=== PATIENT | male | born 1955 | race African-American/Black ===

== ENCOUNTER 2016-05-27 10:14 | Outpatient (CLI) | payer OTHER ==
[2016-05-27 10:45] LABS: Hemoglobin A1c 6.6 % (4.0-6.0)
[2016-05-27 10:52] LABS: ALT (SGPT) 11 U/L (0-55); AST (SGOT) 13 U/L (5-34); Albumin 4.1 g/dL (3.4-4.8); Alkaline Phosphatase 53 U/L (40-150); Anion Gap 14 mmol/L (10-20); BUN (Urea Nitrogen) 16 mg/dL (8.4-25.7); Bilirubin, Total 0.7 mg/dL (0.2-1.2); Calc. Creatinine Clearance 0 mL/min (70-130); Calcium 9.5 mg/dL (7.8-10.44); Carbon Dioxide 25 mmol/L (23-31); Chloride 101 mmol/L (98-107); Estimated GFR-MDRD 84; Globulin 2.8 g/dL (2.4-3.5); Glucose 104 mg/dL (80-115); Potassium 4.6 mmol/L (3.5-5.1); Protein, Total 6.9 g/dL (5.8-8.1); Sodium 135 mmol/L (136-145)
== END 2016-05-27 10:15 | disposition home or self-care (01) ==
LOC: MADLABBHPM 10:14
PROVIDERS: ATTEND Family Medicine
DX: E79.0 Hyperuricemia without signs of inflammatory arthritis and tophaceous disease (principal); E11.9 Type 2 diabetes mellitus without complications
CPT/HCPCS: 36415; 80053; 83036; 84550

== ENCOUNTER 2016-08-26 10:54 | Outpatient (CLI) | payer OTHER ==
[2016-08-26 11:29] LABS: ALT (SGPT) 13 U/L (8-55); AST (SGOT) 14 U/L (5-34); Alkaline Phosphatase 52 U/L (40-150); Anion Gap 12 mmol/L (10-20); BUN (Urea Nitrogen) 13 mg/dL (8.4-25.7); Bilirubin, Total 0.6 mg/dL (0.2-1.2); Calc. Creatinine Clearance 0 mL/min (70-130); Calcium 8.9 mg/dL (7.8-10.44); Carbon Dioxide 25 mmol/L (23-31); Chloride 103 mmol/L (98-107); Estimated GFR-MDRD 88; Globulin 2.8 g/dL (2.4-3.5); Glucose 98 mg/dL (80-115); Potassium 4.3 mmol/L (3.5-5.1); Protein, Total 6.8 g/dL (5.8-8.1); Sodium 136 mmol/L (136-145)
== END 2016-08-26 10:55 | disposition home or self-care (01) ==
LOC: MADLABBHPM 10:54
PROVIDERS: ATTEND Family Medicine
DX: E11.9 Type 2 diabetes mellitus without complications (principal)
CPT/HCPCS: 36415; 80053

== ENCOUNTER 2016-11-12 08:17 | Outpatient (CLI) | payer OTHER ==
[2016-11-12 08:47] LABS: Hemoglobin A1c 6.6 % (4.0-6.0)
[2016-11-12 09:16] LABS: ALT (SGPT) 15 U/L (8-55); AST (SGOT) 14 U/L (5-34); Albumin 3.9 g/dL (3.4-4.8); Alkaline Phosphatase 55 U/L (40-150); Anion Gap 14 mmol/L (10-20); BUN (Urea Nitrogen) 13 mg/dL (8.4-25.7); Bilirubin, Direct 0.2 mg/dL (0.1-0.3); Bilirubin, Total 0.5 mg/dL (0.2-1.2); Calc. Creatinine Clearance 0 mL/min (70-130); Calcium 9.3 mg/dL (7.8-10.44); Carbon Dioxide 27 mmol/L (23-31); Cardiac Risk 4.8 (Less than 4.5); Chloride 100 mmol/L (98-107); Cholesterol 181 mg/dl (< 200 Desired); Estimated GFR-MDRD 83; Globulin 3.1 g/dL (2.4-3.5); Glucose 146 mg/dL (80-115); HDL Cholesterol 38 mg/dL (>60 Neg Risk); LDL Cholesterol, Calculated 116 mg/dL; Potassium 4.7 mmol/L (3.5-5.1); Sodium 136 mmol/L (136-145); Triglycerides 135 mg/dL (Less than 150); Uric Acid 6.7 mg/dL (3.5-7.2)
[2016-11-12 09:31] LABS: Free T4 (Free Thyroxine) 1.1 ng/dL (0.70-1.48); Thyroid Stimulating Hormone 2.171 uIU/mL (0.35-4.94)
[2016-11-12 09:34] LABS: Hemoglobin 16.5 g/dL (14.0-18.0); Mean Corpuscular HGB CONC 31.4 g/dL (32.0-36.0); Mean Corpuscular Hemoglobin 27.4 pg (27.0-31.0); Mean Corpuscular Volume 87.3 fl (80.0-94.0); Mean Platelet Volume 15.4 fL (7.4-10.4); Platelet Count 107 thou/uL (130-400); RBC Distribution Width 13.5 % (11.5-14.5); White Blood Cell (WBC) Count 4.6 thou/uL (4.8-10.8)
[2016-11-12 10:57] LABS: Band 3 % (5-11); Lymphocytes 27 % (21-51); Manual Diff?? YES; Monocytes 5 % (0-10); Neutrophil 42 % (42-75); Reactive Lymphocytes 22 % (0-10)
[2016-11-12 10:58] LABS: Eosinophils 1 % (0-10)
[2016-11-12 10:59] LABS: Giant Platelets MODERATE; PLT Morphology Comment Appears Decreased; RBC Morphology Normal
[2016-11-12 11:08] LABS: MDiff Complete? YES
[2016-11-12 17:30] LABS: Creatinine, Urine 78.86 mg/dL (63-166); Microalbumin Urine Less than 1.0 mg/dL (0.5-50.0); Microalbumin/Creat Ratio 12.7 mg/g (Less than 30)
== END 2016-11-12 08:18 | disposition home or self-care (01) ==
LOC: MADLABBHPM 08:17
PROVIDERS: ATTEND Family Medicine
DX: E11.9 Type 2 diabetes mellitus without complications (principal); E78.5 Hyperlipidemia, unspecified; B35.1 Tinea unguium
CPT/HCPCS: 36415; 80053; 80061; 82043; 82248; 83036; 84439; 84443; 84550; 85025

== ENCOUNTER 2017-05-06 02:30 | Emergency (ER) | payer OTHER ==
[2017-05-06] MEDS ORDERED: Aspirin 325 MG TAB ONE (03:26)
[2017-05-06] MEDS ORDERED: Nitroglycerin 0.4 MG TAB 1 EACH ONE (03:26)
[2017-05-06] MEDS ORDERED: Donnatal Elixir 16.2 MG/5 ML UDCUP ONE ×2 (03:32→08:54)
[2017-05-06] MEDS ORDERED: Mag-Al Plus 1200 MG/1200 MG/120 MG/30 ML UDCUP ONE (03:33)
[2017-05-06] MEDS ORDERED: Lidocaine Viscous Sol 2% 15 ml UD Cup ONE (03:33)
[2017-05-06 03:41] LABS: INR-International Normal Ratio 1.1; PTT 26.8 SEC (22.9-36.1); Prothrombin Time 13.9 SEC (12.0-14.7)
[2017-05-06 03:47] LABS: Hemoglobin 16.1 g/dL (14.0-18.0); Lymphocytes 39 % (21-51); MDiff Complete? YES; Mean Corpuscular Hemoglobin 28.6 pg (27.0-31.0); Mean Corpuscular Volume 86.8 fl (80.0-94.0); Mean Platelet Volume 11.8 fL (7.4-10.4); Monocytes 6 % (0-10); Neutrophil 48 % (42-75); PLT Morphology Comment Appears Decreased; Platelet Count 126 thou/uL (130-400); RBC Distribution Width 12.6 % (11.5-14.5); RBC Morphology Normal; Reactive Lymphocytes 7 % (0-10); Red Blood Cell (RBC) Count 5.62 mill/uL (4.70-6.10); White Blood Cell (WBC) Count 6.2 thou/uL (4.8-10.8)
[2017-05-06 03:52] LABS: ALT (SGPT) 11 U/L (8-55); AST (SGOT) 11 U/L (5-34); Albumin 3.9 g/dL (3.4-4.8); Alkaline Phosphatase 54 U/L (40-150); Anion Gap 15 mmol/L (10-20); BUN (Urea Nitrogen) 16 mg/dL (8.4-25.7); Bilirubin, Total 0.4 mg/dL (0.2-1.2); CK (CPK) 80 U/L (30-200); Calc. Creatinine Clearance 0 mL/min (70-130); Calcium 9.1 mg/dL (7.8-10.44); Carbon Dioxide 25 mmol/L (23-31); Chloride 101 mmol/L (98-107); Estimated GFR-MDRD Greater than 90; Globulin 2.8 g/dL (2.4-3.5); Glucose 134 mg/dL (80-115); Potassium 4.3 mmol/L (3.5-5.1); Protein, Total 6.7 g/dL (5.8-8.1); Sodium 137 mmol/L (136-145)
[2017-05-06 04:09] LABS: CKMB 1.6 ng/mL (0-6.6); Troponin I 0.016 ng/mL (< 0.028)
--- NOTE | 2017-05-06 08:14 | RAD ---
PORTABLE AP CHEST RADIOGRAPH: Date: 05-06-17 History: Chest pain Comparison: 05-07-12 FINDINGS: Cardiac silhouette and pulmonary vasculature are within normal limits. There is focal eventration of the medial right hemidiaphragm. The lungs are clear. Vascular calcification in the thoracic aorta. Th ere has been no interval change from prior exam. IMPRESSION: No acute cardiopulmonary process. POS: [facility]
== END 2017-05-06 04:30 | disposition home or self-care (01) ==
LOC: MADERS 02:30
DX: R07.89 Other chest pain (principal); M10.9 Gout, unspecified; E11.9 Type 2 diabetes mellitus without complications; I10 Essential (primary) hypertension; J44.9 Chronic obstructive pulmonary disease, unspecified
CPT/HCPCS: 71045; 80053; 82553; 83880; 84484; 85025; 85610; 85730; 93005; 94760

== ENCOUNTER 2018-02-10 08:07 | Emergency (ER) | payer OTHER ==
--- NOTE | 2018-02-10 08:53 | RAD ---
FRONTAL VIEW CHEST: COMPARISON: 05/06/2017. INDICATION: Cough. FINDINGS: There is a patchy left basilar density. Mild prominence of pulmonary vasculature as well as prominen ce of the cardiomediastinal silhouette. Component of left pleural fluid not excluded. No discrete p neumothorax. IMPRESSION: 1. Left basilar density indicating pneumonia. Superimposed pleural fluid is not excluded. 2. Findings are superimposed upon a background of edema. Recommend followup to resolution to include 2 view chest series. CODE T POS: [facility]
[2018-02-10 08:56] LABS: Hemoglobin 15.6 g/dL (14.0-18.0); Mean Corpuscular HGB CONC 31.4 g/dL (32.0-36.0); Mean Corpuscular Hemoglobin 27.1 pg (27.0-31.0); Mean Corpuscular Volume 86.3 fL (78.0-98.0); Mean Platelet Volume 10.4 fL (7.4-10.4); Platelet Count 194 thou/uL (130-400); RBC Distribution Width 12.9 % (11.5-14.5); Red Blood Cell (RBC) Count 5.76 mill/uL (4.70-6.10); White Blood Cell (WBC) Count 14.6 thou/uL (4.8-10.8)
[2018-02-10 09:00] LABS: Band 2 % (5-11); Lymphocytes 15 % (21-51); MDiff Complete? YES; Manual Diff?? YES; Monocytes 5 % (0-10); Neutrophil 78 % (42-75); PLT Morphology Comment Appears Adequate; RBC Morphology Normal
[2018-02-10 09:06] LABS: INR-International Normal Ratio 1.1; PTT 26.9 SEC (22.9-36.1); Prothrombin Time 13.9 SEC (12.0-14.7)
[2018-02-10 09:06] LABS: ALT (SGPT) 26 U/L (8-55); AST (SGOT) 30 U/L (5-34); Albumin 4.2 g/dL (3.4-4.8); Alkaline Phosphatase 87 U/L (40-150); Anion Gap 16 mmol/L (10-20); BUN (Urea Nitrogen) 13 mg/dL (8.4-25.7); Bilirubin, Total 1.1 mg/dL (0.2-1.2); Calc. Creatinine Clearance 0 mL/min (70-130); Calcium 9.5 mg/dL (7.8-10.44); Carbon Dioxide 24 mmol/L (23-31); Chloride 101 mmol/L (98-107); Estimated GFR-MDRD 86; Globulin 3.6 g/dL (2.4-3.5); Glucose 134 mg/dL (80-115); Potassium 4.3 mmol/L (3.5-5.1); Protein, Total 7.8 g/dL (5.8-8.1); Sodium 137 mmol/L (136-145)
[2018-02-10 09:21] LABS: CK (CPK) 117 U/L (30-200); Lipase 6 U/L (8-78)
[2018-02-10 09:27] LABS: Troponin I Less than 0.010 ng/mL (< 0.028)
[2018-02-10] MEDS ORDERED: Acetaminophen 500 MG TAB ONE (09:38)
--- NOTE | 2018-02-10 10:37 | CT ---
CTA OF THE THORAX UTILIZING IV CONTRAST AND 3D REFORMATTED IMAGING: Indication: 62-year-old male with chest pain and shortness of breath. Comparison: Chest radiograph 02-10-18, CT chest, abdomen, and pelvis 09-01-13. FINDINGS: Respiratory motion artifact and the timing of the contrast bolus limits evaluation of the distal loba r and segmental branches of the pulmonary arterial tree. No definite central pulmonary embolus is justino dent. There is prominent airspace consolidation within the left lower lobe suspicious for pneumonia. There is a small left pleural effusion. There is right basilar atelectasis. There is a mildly prominent 1 cm lymph node within the pretracheal region, stable to the prior exam. Additionally mildly prominent lymph nodes are seen within the superior mediastinum which are also st able. There is scattered vascular calcification. Visualized upper abdomen demonstrated normal sized spleen. The spleen previously measured 20 cm. Smal l left adrenal nodule is stable. Right adrenal gland is unremarkable appearing. No focal hepatic lesi on is evident. No acute osseous abnormality is evident. There is mild thoracic scoliosis. IMPRESSION: 1. Left lower lobe airspace consolidation with small left pleural effusions, suspicious for pneumonia with parapneumonic effusion. 2. No definite central pulmonary embolus. 3. Limitations to the exam as above. POS: [facility]
[2018-02-10] MEDS ORDERED: Iopamidol 370 76% 125 ML VIAL FS ONE (12:17)
[2018-02-10] MEDS ORDERED: Sodium Chloride 0.9% 1,000 ML BAG ONE (22:08)
== END 2018-02-10 11:35 | disposition home or self-care (01) ==
LOC: MADERS 08:07
DX: J18.9 Pneumonia, unspecified organism (principal); M10.9 Gout, unspecified; E11.9 Type 2 diabetes mellitus without complications; I10 Essential (primary) hypertension; J44.9 Chronic obstructive pulmonary disease, unspecified; F17.210 Nicotine dependence, cigarettes, uncomplicated; Z79.899 Other long term (current) drug therapy; Z79.82 Long term (current) use of aspirin; Z79.84 Long term (current) use of oral hypoglycemic drugs
CPT/HCPCS: 71045; 71275; 80053; 82550; 82553; 83605; 83690; 83880; 84484; 85025; 85610; 85730; 87040; 93005; 94760; 96361; 96365; 96366; J1956; J7050

== ENCOUNTER 2018-02-22 11:22 | Outpatient (CLI) | payer OTHER ==
--- NOTE | 2018-02-22 13:45 | RAD ---
CHEST 2 VIEWS: HISTORY: Pneumonia. Chest pain. COMPARISON: Radiograph 02/10/2018. FINDINGS: Heart size is upper limits of normal. Mild pulmonary venous congestion. Left basilar opacities impr cate. No pneumothorax. Pulmonary vessels are enlarged. IMPRESSION: 1. Mild cardiomegaly and pulmonary venous congestion. 2. Interval improvement of left basilar airspace opacity. POS: [facility]
== END 2018-02-22 11:23 | disposition home or self-care (01) ==
LOC: MADRAD 11:22
PROVIDERS: ATTEND Nurse Practitioner Family
DX: J18.1 Lobar pneumonia, unspecified organism (principal); I51.7 Cardiomegaly; J81.1 Chronic pulmonary edema; R91.8 Other nonspecific abnormal finding of lung field
CPT/HCPCS: 71046

== ENCOUNTER 2018-05-18 12:05 | Outpatient (CLI) | payer OTHER ==
--- NOTE | 2018-05-18 14:03 | RAD ---
CHEST TWO VIEWS: Comparison: 02-22-18 History: Cough. Pneumonia. FINDINGS: Normal cardiac silhouette. Pulmonary vessels and hilum are normal. Costophrenic angles are clear. The re are patchy interstitial opacities in the right lung, more focal infiltrate in the right upper lobe is suspected. No pneumothorax or osseous abnormality. IMPRESSION: Interstitial and alveolar infiltrates in the right lung. POS: [facility]
== END 2018-05-18 12:06 | disposition home or self-care (01) ==
LOC: MADRAD 12:05
PROVIDERS: ATTEND Nurse Practitioner Family
DX: J18.9 Pneumonia, unspecified organism (principal); R91.8 Other nonspecific abnormal finding of lung field
CPT/HCPCS: 71046

== ENCOUNTER 2018-07-15 11:18 | Emergency (ER) | payer MEDICARE, MEDICAID ==
--- NOTE | 2018-07-15 11:51 | RAD ---
PORTABLE CHEST: Date: 07/15/18 PROVIDED CLINICAL HISTORY: Dyspnea. FINDINGS: Comparison with 05/18/18. The cardiac and mediastinal silhouette is unchanged in appearance. There is persistent and/or recurre nt parenchymal opacity involving the right mid lung zone. The lungs appear otherwise clear. There is no pleural fluid or pneumothorax apparent. IMPRESSION: Persistent and/or recurrent air space disease in right mid lung zone. Differential considerations wou ld include pneumonia and neoplasm. Follow-up after treatment recommended to document resolution. If t here are no signs and symptoms suggesting infection, CT should be performed to evaluate for neoplasm. POS: [facility]
[2018-07-15 11:56] LABS: #Basophils 0.1 thou/uL (0.0-0.2); #Lymphocytes 2.3 thou/uL (1.20-3.40); #Monocytes 0.9 thou/uL (0.11-0.59); #Neutrophils 14.7 thou/uL (1.40-6.50); %Basophils 0.6 % (0.0-1.0); %Monocytes 4.7 % (0.0-10.0); %Neutrophils 81.7 % (42.0-75.0); Hemoglobin 13.5 g/dL (14.0-18.0); Mean Corpuscular HGB CONC 32.3 g/dL (32.0-36.0); Mean Corpuscular Hemoglobin 25.6 pg (27.0-31.0); Mean Corpuscular Volume 79.2 fL (78.0-98.0); Mean Platelet Volume 9.1 fL (7.4-10.4); Platelet Count 187 thou/uL (130-400); RBC Distribution Width 13.9 % (11.5-14.5); Red Blood Cell (RBC) Count 5.26 mill/uL (4.70-6.10)
[2018-07-15 12:11] LABS: ALT (SGPT) 16 U/L (8-55); AST (SGOT) 18 U/L (5-34); Albumin 3.5 g/dL (3.4-4.8); Alkaline Phosphatase 87 U/L (40-150); Anion Gap 17 mmol/L (10-20); BUN (Urea Nitrogen) 18 mg/dL (8.4-25.7); Bilirubin, Total 1.1 mg/dL (0.2-1.2); Calc. Creatinine Clearance 0 mL/min (70-130); Calcium 9.5 mg/dL (7.8-10.44); Carbon Dioxide 22 mmol/L (23-31); Chloride 101 mmol/L (98-107); Estimated GFR-MDRD Greater than 90; Globulin 3.7 g/dL (2.4-3.5); Glucose 143 mg/dL (80-115); Potassium 4.8 mmol/L (3.5-5.1); Protein, Total 7.2 g/dL (5.8-8.1); Sodium 135 mmol/L (136-145)
[2018-07-15] MEDS ORDERED: Sodium Chloride 0.9% 250 ML 250 ML ONE (12:18)
[2018-07-15] MEDS ORDERED: Cefepime 2 GM VIAL ONE (12:18)
[2018-07-15] MEDS ORDERED: Vancomycin HCl 500 MG VIAL ONE (12:18)
[2018-07-15] MEDS ORDERED: Sodium Chloride 0.9% 200 ML ONE (12:33)
--- NOTE | 2018-07-15 12:41 | CT ---
CT chest noncontrast HISTORY: Dyspnea. COMPARISON: 02/10/2018. FINDINGS: Dense wedge-shaped infiltrate occupying most of the posterior segment right upper lobe show s air bronchograms. Minimal patchy infiltrate at the right posterior costophrenic angle. Mild emphysematous changes throughout the upper lobes. Scattered calcified granulomata. Minimal right pleural fluid. Central airways are patent. Lack of contrast limits evaluation of soft tissues. Calcification in the arterial structures. Nonenla rged, nonspecific lymph nodes about the mediastinum are again demonstrated. IMPRESSION: Dense right upper lobe pneumonia. Minimal right pleural fluid. Atherosclerosis.
== END 2018-07-15 13:55 | disposition short-term general hospital (02) ==
LOC: MADERS 11:18
DX: J18.9 Pneumonia, unspecified organism (principal); M10.9 Gout, unspecified; E11.9 Type 2 diabetes mellitus without complications; I10 Essential (primary) hypertension; J44.9 Chronic obstructive pulmonary disease, unspecified; F17.210 Nicotine dependence, cigarettes, uncomplicated; Z79.899 Other long term (current) drug therapy; Z79.82 Long term (current) use of aspirin
CPT/HCPCS: 71045; 71250; 80053; 83605; 83880; 84484; 85025; 87040; 87077; 87149; 87186; 93005; 96365; 96368; J0692; J3370; J3490; J7050

== ENCOUNTER 2019-02-06 15:15 | Emergency (ER) | payer MEDICARE, OTHER ==
[2019-02-06] MEDS ORDERED: Nitroglycerin 2% Ointment 1 INCH/1 GM Packet ONE (15:21)
[2019-02-06] MEDS ORDERED: Aspirin Chewable 81 MG TAB ONE (15:21)
--- NOTE | 2019-02-06 15:43 | RAD ---
RADIOGRAPH CHEST 1 VIEW: DATE: 02/06/2019 HISTORY: 63-year-old male with chest pain FINDINGS: There are no airspace densities, pulmonary edema, pneumothorax, or cardiomegaly. The lateral costophr enic angles are sharp. IMPRESSION: No acute cardiopulmonary findings.
[2019-02-06 15:51] LABS: ALT (SGPT) 10 U/L (8-55); AST (SGOT) 14 U/L (5-34); Albumin 4.2 g/dL (3.4-4.8); Alkaline Phosphatase 47 U/L (40-110); Anion Gap 17 mmol/L (10-20); BUN (Urea Nitrogen) 13 mg/dL (8.4-25.7); Bilirubin, Total 0.4 mg/dL (0.2-1.2); Calc. Creatinine Clearance 0 mL/min (70-130); Calcium 8.3 mg/dL (7.8-10.44); Carbon Dioxide 21 mmol/L (23-31); Chloride 107 mmol/L (98-107); Estimated GFR-MDRD 89; Globulin 2.8 g/dL (2.4-3.5); Glucose 131 mg/dL (80-115); Potassium 4.4 mmol/L (3.5-5.1); Sodium 141 mmol/L (136-145)
[2019-02-06 15:58] LABS: Eosinophils 1 % (0-10); Hemoglobin 15.4 g/dL (14.0-18.0); Large Platelets SLIGHT; Lymphocytes 29 % (21-51); MDiff Complete? YES; Mean Corpuscular Hemoglobin 27.2 pg (27.0-31.0); Mean Corpuscular Volume 90.6 fL (78.0-98.0); Mean Platelet Volume 11.5 fL (7.4-10.4); Monocytes 6 % (0-10); Neutrophil 29 % (42-75); Platelet Count 210 thou/uL (130-400); Platelet Morphology Comment Appears Adequate; RBC Distribution Width 13.3 % (11.5-14.5); RBC Morphology Normal; Reactive Lymphocytes 35 % (0-10); Red Blood Cell (RBC) Count 5.66 mill/uL (4.70-6.10)
[2019-02-06] MEDS ORDERED: Nitroglycerin 0.4 MG TAB 1 EACH ONE (15:59)
== END 2019-02-06 17:19 | disposition critical access hospital (66) ==
LOC: MADERS 15:15
DX: I20.0 Unstable angina (principal); I16.9 Hypertensive crisis, unspecified; I10 Essential (primary) hypertension; E11.9 Type 2 diabetes mellitus without complications; J44.9 Chronic obstructive pulmonary disease, unspecified; F17.210 Nicotine dependence, cigarettes, uncomplicated; Z79.899 Other long term (current) drug therapy; Z79.82 Long term (current) use of aspirin; Z79.84 Long term (current) use of oral hypoglycemic drugs
CPT/HCPCS: 71045; 80053; 83880; 84484; 85025; 93005

== ENCOUNTER 2021-08-02 15:18 | Outpatient (CLI) | payer MEDICARE, OTHER | END 2021-08-02 15:19 | disposition home or self-care (01) | LOC: MADLAB 15:18 → MADRAD 15:19 | PROVIDERS: ATTEND Family Medicine | DX: L03.031 Cellulitis of right toe (principal); M79.89 Other specified soft tissue disorders ==

== ENCOUNTER 2021-12-04 10:16 | Outpatient (CLI) | payer OTHER ==
[2021-12-04 10:48] LABS: ALT (SGPT) 12 U/L (8-55); AST (SGOT) 14 U/L (5-34); Albumin 3.8 g/dL (3.4-4.8); Alkaline Phosphatase 57 U/L (40-110); Anion Gap 12 mmol/L (10-20); BUN (Urea Nitrogen) 12 mg/dL (8.4-25.7); Bilirubin, Total 0.5 mg/dL (0.2-1.2); Calc. Creatinine Clearance 0 mL/min (70-130); Calcium 9.8 mg/dL (7.8-10.44); Carbon Dioxide 26 mmol/L (23-31); Cardiac Risk 5.2 (Less than 4.5); Chloride 109 mmol/L (98-107); Cholesterol 145 mg/dl (< 200 Desired); Estimated GFR 89; Globulin 2.7 g/dL (2.4-3.5); Glucose 90 mg/dL (80-115); HDL Cholesterol 28 mg/dL (>60 Neg Risk); LDL Cholesterol, Calculated 95 mg/dL; Potassium 5.2 mmol/L (3.5-5.1); Protein, Total 6.5 g/dL (5.8-8.1); Sodium 142 mmol/L (136-145); Triglycerides 109 mg/dL (Less than 150)
[2021-12-04 11:57] LABS: Thyroid Stimulating Hormone 2.4809 uIU/mL (0.35-4.94)
[2021-12-04 16:26] LABS: Hemoglobin A1c 5.6 % (4.0-6.0)
[2021-12-04 16:54] LABS: Free T4 (Free Thyroxine) 1.08 ng/dL (0.70-1.48)
[2021-12-04 17:36] LABS: Creatinine, Urine 113.06 mg/dL (63-166); Microalbumin Urine 1.1 mg/dL (0.5-50.0); Microalbumin/Creat Ratio 9.7 mg/g (Less than 30)
== END 2021-12-04 10:17 | disposition home or self-care (01) ==
LOC: MADLABBHPM 10:16 → MADLAB 10:17
PROVIDERS: ATTEND Family Medicine
DX: E78.2 Mixed hyperlipidemia (principal); E11.9 Type 2 diabetes mellitus without complications
CPT/HCPCS: 80053; 80061; 82043; 83036; 84439; 84443; 84481

== ENCOUNTER 2022-02-26 13:20 | Outpatient (CLI) | payer OTHER ==
[2022-02-26 14:29] LABS: ALT (SGPT) 11 U/L (8-55); AST (SGOT) 13 U/L (5-34); Albumin 3.7 g/dL (3.4-4.8); Alkaline Phosphatase 83 U/L (40-110); Anion Gap 15 mmol/L (10-20); BUN (Urea Nitrogen) 10 mg/dL (8.4-25.7); Bilirubin, Total 0.4 mg/dL (0.2-1.2); Calc. Creatinine Clearance 0 mL/min (70-130); Calcium 9.7 mg/dL (7.8-10.44); Carbon Dioxide 25 mmol/L (23-31); Chloride 104 mmol/L (98-107); Estimated GFR 85; Globulin 3.2 g/dL (2.4-3.5); Glucose 79 mg/dL (80-115); Potassium 4.9 mmol/L (3.5-5.1); Protein, Total 6.9 g/dL (5.8-8.1); Sodium 139 mmol/L (136-145)
[2022-02-26 22:03] LABS: Hemoglobin A1c 5.6 % (4.0-6.0)
== END 2022-02-26 13:21 | disposition home or self-care (01) ==
LOC: MADLAB 13:20
PROVIDERS: ATTEND Internal Medicine
DX: J44.9 Chronic obstructive pulmonary disease, unspecified (principal); E79.0 Hyperuricemia without signs of inflammatory arthritis and tophaceous disease; E11.9 Type 2 diabetes mellitus without complications; R91.8 Other nonspecific abnormal finding of lung field
CPT/HCPCS: 36415; 71046; 80053; 83036; 84550

== ENCOUNTER 2022-03-10 10:26 | Outpatient (CLI) | payer MEDICARE, OTHER | END 2022-03-10 10:27 | disposition home or self-care (01) | LOC: MADRAD 10:26 | PROVIDERS: ATTEND Family Medicine | DX: J44.9 Chronic obstructive pulmonary disease, unspecified (principal); R91.1 Solitary pulmonary nodule | CPT/HCPCS: 71046 ==